=== PATIENT | male | born 2000 | race Caucasian/White ===

== ENCOUNTER 2023-07-01 10:25 | Inpatient (IN) ==
[2023-07-01] MEDS ORDERED: ONDANSETRON INJ 2 MG/ML 2 ML VIAL IV STA (10:48)
[2023-07-01] MEDS ORDERED: KETOROLAC 30 MG/ML VIAL IV ONE (10:59)
[2023-07-01] MEDS ORDERED: SODIUM CHLORIDE 0.9% 2,000 ML IV SCH (11:00)
--- NOTE | 2023-07-01 11:04 | Emergency Department Note ---
Impression & Plan Nausea & vomiting, Hypercalcemia, Hyperparathyroidism, Hypomagnesemia ED Provider Note HISTORY OF PRESENT ILLNESS: Patient is a 22-year-old male presenting with generalized abdominal pain, vomiting and diarrhea. Patient reports that he has been unable to tolerate anything by mouth for the last 48 hours. He reports that since he tries to eat or drink anything he vomits and has profuse diarrhea. Reports generalized abdominal pain. Reports an abdominal surgical history of an appendectomy. Denies any fevers in the last few days. Denies any recent travel. Denies any recent sick contact exposures. Currently complaining of generalized abdominal pain and nausea. Denies any dysuria or hematuria. Denies any chest pain or shortness of breath ROS: as above PHYSICAL EXAM: Constitutional: Patient appears in no acute distress. HENT: Head: Normocephalic and atraumatic. Eyes: EOMI, PERRL Mouth/Throat: Mucous membranes dry Neck: Trachea midline. Neck supple. Cardiovascular: RRR, No murmurs, rubs or gallops. Intact distal pulses. Pulmonary/Chest: No respiratory distress. Breath sounds clear and equal bilaterally. No wheezes or rales. Abdominal: Abdomen soft, no rebound or guarding. Generalized TTP Musculoskeletal: No edema, tenderness or deformity noted. Skin: Warm and dry. No rash, erythema, pallor or cyanosis Psychiatric: Appropriate mood and affect for situation. Neurological: Alert and keenly responsive. CN II-XII grossly intact, moving all extremities equally and fully. MDM: - Vitals signs stable. - History obtained via patient. Patient presents with generalized abdominal pain, vomiting and diarrhea. Patient reports he is unable to tolerate anything by mouth for the last 48 hours. He states that his pain is he tries to eat or drink anything, he immediately vomits. Denies any chest pain or shortness of breath. Denies any fevers. Has an abdominal surgical history of an appendectomy - Chronic conditions affecting care: none - Differential diagnoses include, but are not limited to: Viral syndrome; electrolyte abnormality; cholecystitis; colitis - Order placed for continuous cardiac monitoring. At this time, monitor showed rate of 84 bpm with normal sinus rhythm, per my interpretation. - External medical records reviewed. Patient was noted to be hypercalcemic in February 2023 with a calcium level of 12.5 - Laboratory workup interpreted by myself showed normal WBC; normal potassium; hypercalcemia (Ca 12.3); hypomagnesemia (Mg 1.5); hypophosphatemia (phos 1.7); normal lipase; IZA (Cr 1.35 - baseline around 0.9-1.0) - Patient given 2L NS and 4 mg IV zofran in ER. Given 30 mg IV toradol for pain. - Given patient's hypercalcemia in February 2023 and again today, ionized calcium and PTH was added to workup. Ionized calcium elevated at 1.42 and PTH be elevated at 193.6. - UA negative for infection - Cdiff and stool biofire negative - CT abdomen/pelvis with IV contrast negative for acute pathology. - Patient given 1g IV mag for electrolyte replacement. - Discussion was had with social work manager about patient's case and need for admission - Hospitalist consulted for admission - [facility] ASSESSMENT AND PLAN: Diagnosis: vomiting and diarrhea; hypercalcemia; hypomagnesemia; hyperparath yroidism; IZA Plan: admit Past Med/Surg History Medical History (Updated 07/01/23 @ 14:39 by Cathy Frost MD) No pertinent past medical history Surgical History (Updated 02/28/23 @ 15:59 by Soraya Herron RN) History of laparoscopic appendectomy (02/26/23) Laparoscopic Appendectomy(Not Applicable) - Jaime Bah MD, FACS Social History Smoking Status: Never smoker Preferred Language: Irish Visual Impairment: No Limitations Feels Safe at Home: Yes Allergies Allergies Allergy/AdvReac Type Severity Reaction Status Date / Time No Known Allergies Allergy Unverified 03/14/23 13:49 Results & Data (ED) Vital Signs Vital Signs - 24 hr 07/01/23 10:31 Temperature 36.4 C L Temperature Source Temporal Artery Scan Pulse Rate 84 Respiratory Rate 18 Respiratory Effort / Characteristics Non-Labored Respiratory Depth Normal Blood Pressure 137/85 Blood Pressure Mean 102 Blood Pressure Position Sitting Pulse Oximetry 100 Oxygen Delivery Method Room Air Sepsis Recent Fever Within 48 Hours No Sepsis New/Unexplained Change in Mental Status No Sepsis Action Taken by Nursing No Action Required Laboratory Data 07/01/23 11:29 07/01/23 11:29 Lab Results 1007/01/23 07/01/23 Range/Units 11:29 11:29 11:32 WBC 4.56 L (4.8-10.8) K/ul RBC 4.87 (4.70-6.10) M/uL Hgb 14.6 (14.0-18.0) g/dl Hct 42.7 (42.0-52.0) % MCV 87.7 (80.0-100.0) fL MCH 30.0 (25.0-34.0) pg MCHC 34.2 (32.0-36.0) g/dL RDW Std Deviation 40.2 (36.4-46.3) fL RDW Coeff of Gary 12.6 (11.5-14.5) % Plt Count 206 (130-400) K/uL MPV 10.0 (9.4-12.4) fL Immature Gran % (Auto) 0.2 % Neut % (Auto) 72.6 % Lymph % (Auto) 13.4 % [place] % (Auto) 13.4 % Eos % (Auto) 0.2 % Baso % (Auto) 0.2 % Neut # (Auto) 3.31 (1.40-6.50) K/uL Lymph # (Auto) 0.61 L (1.20-3.40) K/uL [place] # (Auto) 0.61 H (0.11-0.59) K/uL Eos # (Auto) 0.01 (0.00-0.50) K/uL Baso # (Auto) 0.01 (0.00-0.20) K/uL Immature Gran # (Auto) 0.01 (0.01-0.20) K/uL Sodium 138 (136-145) mmol/L Potassium 4.5 (3.5-5.1) mmol/L Chloride 109 H (98-107) mmol/L Carbon Dioxide 24 (21-32) mmol/L Anion Gap 5 (3-11) BUN 15 (6-23) mg/dl Creatinine 1.35 (0.6-1.4) mg/dl Est Cr Clr Drug Dosing 106.5 ml/min Est GFR ( Amer) 84.6 ml/min Est GFR (Non-Af Amer) 73.0 ml/min BUN/Creatinine Ratio 11.1 (10-20) Glucose 114 H (70-99(Fasting)) mg/dl Calcium 12.3 H* (8.6-10.3) mg/dl Ionized Calcium (1.12-1.32) mmol/L Phosphorus (2.5-4.9) mg/dl Magnesium (1.7-2.4) mg/dl Total Bilirubin 0.3 (0.2-1.0) mg/dl AST 22 (13-39) U/L ALT 20 (7-52) U/L Alkaline Phosphatase 142 H (34-104) U/L Total Protein 7.2 (6.0-8.3) gm/dl Albumin 4.5 (3.4-5.0) gm/dl Globulin 2.7 (2.5-4.0) gm/dl Albumin/Globulin Ratio 1.7 (0.9-2) Lipase 7 L (11-82) U/L PTH Intact (12.0-88.0) pg/ml Urine Color Yellow Urine Appearance Clear (Clear) Urine pH 5.5 (4.5-7.5) Ur Specific [place] 1.012 (1.000-1.030) Urine Protein Negative (Negative) Urine Glucose (UA) Negative (Negative) Urine Ketones 1+ H (Negative) Urine Blood Negative (Negative) Urine Nitrite Negative (Negative) Urine Bilirubin Negative (Negative) Urine Urobilinogen Negative (Negative) Ur Leukocyte Esterase Negative (Negative) Stl C. cayetanensis PCR (NotDetected) Stool Rotavirus A PCR (NotDetected) Stl Adenov F 40/41 PCR (NotDetected) Stool Astrovirus (PCR) (NotDetected) Stool Campylobacter PCR (NotDetected) Stl C. diff Tox B Gene (Neg) Stool Cryptosporidium PCR (NotDetected) Stl E.coli Shiga Tox PCR (NotDetected) Stl Enterotoxigenic E PCR (NotDetected) Stool EPEC (PCR) (NotDetected) Stool EAEC (PCR) (NotDetected) Stl E. histolytica PCR (NotDetected) Stool Giardia Lamblia PCR (NotDetected) Stool Salmonella PCR (NotDetected) Stool Sapovirus (PCR) (NotDetected) Stl P. shigelloides PCR (NotDetected) Stl Shigella/EIEC PCR (NotDetected) St Y.enterocolitica PCR (NotDetected) Stool Vibrio (PCR) (NotDetected) Stl Vibrio cholerae PCR (NotDetected) Stl Norovirus GI/GII PCR (NotDetected) 07/01/23 07/01/23 07/01/23 Range/Units 11:32 11:32 12:39 WBC (4.8-10.8) K/ul RBC (4.70-6.10) M/uL Hgb (14.0-18.0) g/dl Hct (42.0-52.0) % MCV (80.0-100.0) fL MCH (25.0-34.0) pg MCHC (32.0-36.0) g/dL RDW Std Deviation (36.4-46.3) fL RDW Coeff of Gary (11.5-14.5) % Plt Count (130-400) K/uL MPV (9.4-12.4) fL Immature Gran % (Auto) % Neut % (Auto) % Lymph % (Auto) % [place] % (Auto) % Eos % (Auto) % Baso % (Auto) % Neut # (Auto) (1.40-6.50) K/uL Lymph # (Auto) (1.20-3.40) K/uL [place] # (Auto) (0.11-0.59) K/uL Eos # (Auto) (0.00-0.50) K/uL Baso # (Auto) (0.00-0.20) K/uL Immature Gran # (Auto) (0.01-0.20) K/uL Sodium (136-145) mmol/L Potassium (3.5-5.1) mmol/L Chloride (98-107) mmol/L Carbon Dioxide (21-32) mmol/L Anion Gap (3-11) BUN (6-23) mg/dl Creatinine (0.6-1.4) mg/dl Est Cr Clr Drug Dosing ml/min Est GFR ( Amer) ml/min Est GFR (Non-Af Amer) ml/min BUN/Creatinine Ratio (10-20) Glucose (70-99(Fasting)) mg/dl Calcium (8.6-10.3) mg/dl Ionized Calcium (1.12-1.32) mmol/L Phosphorus 1.7 L (2.5-4.9) mg/dl Magnesium 1.5 L (1.7-2.4) mg/dl Total Bilirubin (0.2-1.0) mg/dl AST (13-39) U/L ALT (7-52) U/L Alkaline Phosphatase (34-104) U/L Total Protein (6.0-8.3) gm/dl Albumin (3.4-5.0) gm/dl Globulin (2.5-4.0) gm/dl Albumin/Globulin Ratio (0.9-2) Lipase (11-82) U/L PTH Intact (12.0-88.0) pg/ml Urine Color Urine Appearance (Clear) Urine pH (4.5-7.5) Ur Specific [place] (1.000-1.030) Urine Protein (Negative) Urine Glucose (UA) (Negative) Urine Ketones (Negative) Urine Blood (Negative) Urine Nitrite (Negative) Urine Bilirubin (Negative) Urine Urobilinogen (Negative) Ur Leukocyte Esterase (Negative) Stl C. cayetanensis PCR Not Detected (NotDetected) Stool Rotavirus A PCR Not Detected (NotDetected) Stl Adenov F 40/41 PCR Not Detected (NotDetected) Stool Astrovirus (PCR) Not Detected (NotDetected) Stool Campylobacter PCR Not Detected (NotDetected) Stl C. diff Tox B Gene Negative Cdiff Gene (Neg) Stool Cryptosporidium PCR Not Detected (NotDetected) Stl E.coli Shiga Tox PCR Not Detected (NotDetected) Stl Enterotoxigenic E PCR Not Detected (NotDetected) Stool EPEC (PCR) Not Detected (NotDetected) Stool EAEC (PCR) Not Detected (NotDetected) Stl E. histolytica PCR Not Detected (NotDetected) Stool Giardia Lamblia PCR Not Detected (NotDetected) Stool Salmonella PCR Not Detected (NotDetected) Stool Sapovirus (PCR) Not Detected (NotDetected) Stl P. shigelloides PCR Not Detected (NotDetected) Stl Shigella/EIEC PCR Not Detected (NotDetected) St Y.enterocolitica PCR Not Detected (NotDetected) Stool Vibrio (PCR) Not Detected (NotDetected) Stl Vibrio cholerae PCR Not Detected (NotDetected) Stl Norovirus GI/GII PCR Not Detected (NotDetected) 07/01/23 07/01/23 Range/Units 12:39 13:12 WBC (4.8-10.8) K/ul RBC (4.70-6.10) M/uL Hgb (14.0-18.0) g/dl Hct (42.0-52.0) % MCV (80.0-100.0) fL MCH (25.0-34.0) pg MCHC (32.0-36.0) g/dL RDW Std Deviation (36.4-46.3) fL RDW Coeff of Gary (11.5-14.5) % Plt Count (130-400) K/uL MPV (9.4-12.4) fL Immature Gran % (Auto) % Neut % (Auto) % Lymph % (Auto) % [place] % (Auto) % Eos % (Auto) % Baso % (Auto) % Neut # (Auto) (1.40-6.50) K/uL Lymph # (Auto) (1.20-3.40) K/uL [place] # (Auto) (0.11-0.59) K/uL Eos # (Auto) (0.00-0.50) K/uL Baso # (Auto) (0.00-0.20) K/uL Immature Gran # (Auto) (0.01-0.20) K/uL Sodium (136-145) mmol/L Potassium (3.5-5.1) mmol/L Chloride (98-107) mmol/L Carbon Dioxide (21-32) mmol/L Anion Gap (3-11) BUN (6-23) mg/dl Creatinine (0.6-1.4) mg/dl Est Cr Clr Drug Dosing ml/min Est GFR ( Amer) ml/min Est GFR (Non-Af Amer) ml/min BUN/Creatinine Ratio (10-20) Glucose (70-99(Fasting)) mg/dl Calcium (8.6-10.3) mg/dl Ionized Calcium 1.42 H (1.12-1.32) mmol/L Phosphorus (2.5-4.9) mg/dl Magnesium (1.7-2.4) mg/dl Total Bilirubin (0.2-1.0) mg/dl AST (13-39) U/L ALT (7-52) U/L Alkaline Phosphatase (34-104) U/L Total Protein (6.0-8.3) gm/dl Albumin (3.4-5.0) gm/dl Globulin (2.5-4.0) gm/dl Albumin/Globulin Ratio (0.9-2) Lipase (11-82) U/L PTH Intact 193.6 H (12.0-88.0) pg/ml Urine Color Urine Appearance (Clear) Urine pH (4.5-7.5) Ur Specific [place] (1.000-1.030) Urine Protein (Negative) Urine Glucose (UA) (Negative) Urine Ketones (Negative) Urine Blood (Negative) Urine Nitrite (Negative) Urine Bilirubin (Negative) Urine Urobilinogen (Negative) Ur Leukocyte Esterase (Negative) Stl C. cayetanensis PCR (NotDetected) Stool Rotavirus A PCR (NotDetected) Stl Adenov F 40/41 PCR (NotDetected) Stool Astrovirus (PCR) (NotDetected) Stool Campylobacter PCR (NotDetected) Stl C. diff Tox B Gene (Neg) Stool Cryptosporidium PCR (NotDetected) Stl E.coli Shiga Tox PCR (NotDetected) Stl Enterotoxigenic E PCR (NotDetected) Stool EPEC (PCR) (NotDetected) Stool EAEC (PCR) (NotDetected) Stl E. histolytica PCR (NotDetected) Stool Giardia Lamblia PCR (NotDetected) Stool Salmonella PCR (NotDetected) Stool Sapovirus (PCR) (NotDetected) Stl P. shigelloides PCR (NotDetected) Stl Shigella/EIEC PCR (NotDetected) St Y.enterocolitica PCR (NotDetected) Stool Vibrio (PCR) (NotDetected) Stl Vibrio cholerae PCR (NotDetected) Stl Norovirus GI/GII PCR (NotDetected) Administered Medications Discontinued Medications Sodium Chloride (Nss) 2,000 mls @ 999 mls/hr IV .Q2H1M MARIAM Stop: 07/01/23 13:00 Last Infusion: 07/01/23 14:03 Dose: 0 mls/hr Documented By: Admin: 07/01/23 12:00 Dose: 999 mls/hr Documented By: FLORY Ioversol (Optiray 320 100ml) 86 ml IV ONCE ONE Stop: 07/01/23 13:05 Last Admin: 07/01/23 13:04 Dose: 86 ml Documented By: TRAN Ketorolac Tromethamine (Ketorolac 30 Mg/Ml Vial) 30 mg IV NOW ONE Stop: 07/01/23 11:00 Last Admin: 07/01/23 11:59 Dose: 30 mg Documented By: FLORY Ondansetron HCl (Ondansetron Inj 2 Mg/Ml 2 Ml Vial) 4 mg IV NOW STA Stop: 07/01/23 10:49 Last Admin: 07/01/23 11:59 Dose: 4 mg Documented By: FLORY Imaging Data Radiologist's Impression: Abdomen/Pelvis CT 07/01/23 11:[address] WITH IV CONTRAST CT DOSE: 1434.97 mGy.cm HISTORY: Acute abdominal pain with nausea and vomiting abdominal pain; vomiting TECHNIQUE: Multiaxial CT images of the abdomen and pelvis were performed following the IV administration of 86 cc of Optiray, A dose lowering technique was utilized adhering to the principles of ALARA. COMPARISON STUDY: 02/26/2023 FINDINGS: The lung bases are clear. The liver, spleen, gallbladder, pancreas, and adrenal glands are within normal limits. Patchy heterogeneous enhancement of the kidneys. Mild bilateral urothelial thickening. Moderate bladder wall thickening with partial distention. Trace free pelvic fluid. Appendectomy. Mild colonic diverticulosis. No bowel wall thickening or obstruction. The pelvic organs are unremarkable. No suspicious lytic or blastic osseous lesions. IMPRESSION: 1. No bowel obstruction or bowel wall thickening. 2. Appendectomy. 3. Heterogeneous enhancement of the kidneys suggestive of pyelonephritis. Correlate with urinalysis. 4. No hydronephrosis. 5. Trace free pelvic fluid. ACT 112: Negative or not required by law. The above report was generated using voice recognition software. It may contain grammatical, syntax or spelling errors. Electronically signed by: Jayson Hansen M.D. 07/01/2023 1:27 PM Discharge Plan Visit Data Chief Complaint: GI Assessment Stated Complaint: VOMITING, DIARRHEA ED Provider: Cathy Frost Discharge Problem: Nausea & vomiting, Hypercalcemia, Hyperparathyroidism, Hypomagnesemia Forms Stand Alone Forms: [facility] Referrals Referrals: PCP,NO [Primary Care Provider] -
[2023-07-01 11:50] LABS: Basophils # (auto) 0.01 K/uL (0.00-0.20); Basophils % (auto) 0.2 %; Eosinophils # (auto) 0.01 K/uL (0.00-0.50); Eosinophils % (auto) 0.2 %; Hematocrit (blood only) 42.7 % (42.0-52.0); Hemoglobin 14.6 g/dl (14.0-18.0); Immature Granulocytes # (auto) 0.01 K/uL (0.01-0.20); Immature Granulocytes % (auto) 0.2 %; Lymphocytes # (auto) 0.61 K/uL (1.20-3.40); Lymphocytes % (auto) 13.4 %; Mean Corpuscular Hgb Conc 34.2 g/dL (32.0-36.0); Mean Corpuscular Volume 87.7 fL (80.0-100.0); Monocytes # (auto) 0.61 K/uL (0.11-0.59); Monocytes % (auto) 13.4 %; Neutrophils # (auto) 3.31 K/uL (1.40-6.50); Neutrophils % (auto) 72.6 %; Platelet Count 206 K/uL (130-400); RDW Coefficient of Variation 12.6 % (11.5-14.5); RDW Standard Deviation 40.2 fL (36.4-46.3); Red Blood Count 4.87 M/uL (4.70-6.10); White Blood Count 4.56 K/ul (4.8-10.8)
[2023-07-01 11:54] LABS: Appearance Urine Clear (Clear); Bilirubin Urine Negative (Negative); Blood Urine Negative (Negative); Color Urine Yellow; Glucose Urine UA Negative (Negative); Ketones Urine 1+ (Negative); Leukocyte Esterase Urine Negative (Negative); Nitrite Urine Negative (Negative); Protein Urine Negative (Negative); Specific Gravity Urine 1.012 (1.000-1.030); Urobilinogen Urine Negative (Negative); pH Urine 5.5 (4.5-7.5)
[2023-07-01 12:18] LABS: Albumin Globulin Ratio 1.7 (0.9-2); Albumin Level 4.5 gm/dl (3.4-5.0); BUN Creatinine Ratio 11.1 (10-20); Bilirubin,Total 0.3 mg/dl (0.2-1.0); Calcium 12.3 mg/dl (8.6-10.3); Creatinine Clr Calc Pharmacy 106.5 ml/min; Est GFR (African American) 84.6 ml/min; Globulin 2.7 gm/dl (2.5-4.0); Potassium 4.5 mmol/L (3.5-5.1); Total Protein 7.2 gm/dl (6.0-8.3)
[2023-07-01] MEDS ORDERED: OPTIRAY 320 100ml IV ONE (13:04)
[2023-07-01 13:12] LABS: Adenovirus F 40/41 PCR Not Detected (NotDetected); Astrovirus PCR Not Detected (NotDetected); Campylobacter PCR Not Detected (NotDetected); Cryptosporidium PCR Not Detected (NotDetected); Cyclospora cayetanensis PCR Not Detected (NotDetected); Entamoeba histolytica PCR Not Detected (NotDetected); Enteroaggregative E.coli(EAEC) Not Detected (NotDetected); Enteropathogenic E.coli (EPEC) Not Detected (NotDetected); Enterotoxigenic E.coli (ETEC) Not Detected (NotDetected); Giardia lamblia PCR Not Detected (NotDetected); Norovirus GI/GII PCR Not Detected (NotDetected); Plesiomonas shigelloides PCR Not Detected (NotDetected); Rotavirus A PCR Not Detected (NotDetected); Salmonella PCR Not Detected (NotDetected); Sapovirus PCR Not Detected (NotDetected); Shiga-like Toxin E.coli (STEC) Not Detected (NotDetected); Shigella/Enteroinvasive E.coli Not Detected (NotDetected); Vibrio cholerae PCR Not Detected (NotDetected); Vibrio species PCR Not Detected (NotDetected); Yersinia enterocolitica PCR Not Detected (NotDetected)
[2023-07-01 13:25] LABS: Magnesium 1.5 mg/dl (1.7-2.4); Phosphorus 1.7 mg/dl (2.5-4.9)
--- NOTE | 2023-07-01 13:29 | CT Scan Report ---
ABDOMEN AND PELVIS CT WITH IV CONTRAST CT DOSE: 1434.97 mGy.cm HISTORY: Acute abdominal pain with nausea and vomiting abdominal pain; vomiting TECHNIQUE: Multiaxial CT images of the abdomen and pelvis were performed following the IV administrat ion of 86 cc of Optiray, A dose lowering technique was utilized adhering to the principles of ALARA. COMPARISON STUDY: 02/26/2023 FINDINGS: The lung bases are clear. The liver, spleen, gallbladder, pancreas, and adrenal glands are within normal limits. Patchy heterogeneous enhancement of the kidneys. Mild bilateral urothelial thic kening. Moderate bladder wall thickening with partial distention. Trace free pelvic fluid. Appendecto my. Mild colonic diverticulosis. No bowel wall thickening or obstruction. The pelvic organs are unrem arkable. No suspicious lytic or blastic osseous lesions. IMPRESSION: 1. No bowel obstruction or bowel wall thickening. 2. Appendectomy. 3. Heterogeneous enhancement of the kidneys suggestive of pyelonephritis. Correlate with urinalysis. 4. No hydronephrosis. 5. Trace free pelvic fluid. ACT 112: Negative or not required by law. The above report was generated using voice recognition software. It may contain grammatical, syntax o r spelling errors. Electronically signed by: Jayson Hansen M.D. 07/01/2023 1:27 PM
[2023-07-01] MEDS ORDERED: MAGNESIUM SULFATE / D5W 1 GM/100 ML BAG IV STA (14:32)
--- NOTE | 2023-07-01 15:25 | History & Physical Report ---
Date of Service July 01, 2023 Assessment & Plan (1) Abdominal pain: (2) Nausea & vomiting: (3) Diarrhea: Plan: 22-year-old male with no significant past medical history presenting with generalized abdominal pain, nausea and vomiting, with diarrhea x2 days. Abdominal pain, nausea vomiting, diarrhea Secondary to hypercalcemia? Calcium elevated 12.3, PTH 190 Possible primary hyperparathyroidism Discussed with media librarian Dr. Andrade Recommend NSS at 100 cc/h, calcitonin every 12 hours, Pamidronate Repeat calcium level tomorrow Check vitamin D level, JOEL level, renal ultrasound Check 24-hour urine calcium and urine creatinine starting tomorrow at [address] neck as well once calcium level is below 10 Rule out urinary tract infection, pyelonephritis Urinalysis unrevealing But patient has right CVA tenderness CT abdomen pelvis showing possible pyelonephritis Check urine culture ceftriaxone IV every 24 hours Possible viral gastroenteritis Stool PCR negative Continue supportive care including IV fluids, bowel rest Hypomagnesemia, hypophosphatemia Secondary to poor oral intake, diarrhea Replace with IV sodium phosphorus, IV magnesium Repeat phosphorus and magnesium tonight DVT prophylaxis-SCDs CODE STATUS Full code Disposition Return to home when medically stable History of Present Illness Chief Complaint: Generalized abdominal pain, nausea and vomiting x2-day Primary Care Provider: NO PCP 22-year-old male with no past medical history presenting with generalized abdominal pain and nausea, vomiting x2 days Patient reports that since , he has been having tenderness abdominal pain associated with nausea, vomiting, and diarrhea times at least 10 times per day. No hematemesis or hematochezia. No fever or chills He reports having some right lower back discomfort but denies problems with urination including dysuria, hematuria, etc. He presented to the ER today due to persistence of his symptoms. At the ER, patient received hemodynamically stable, afebrile. Calcium level 12.3, PTH 190. Urinalysis unrevealing for CT scan abdomen and pelvis showing possible pyelonephritis On exam, the patient is seen resting in bed, reports nausea has returned since Zofran has been given a while ago. Abdominal pain seems to be improving No any other symptoms Allergies Allergy/AdvReac Type Severity Reaction Status Date / Time No Known Allergies Allergy Unverified 03/14/23 13:49 Home Medications Medication Instructions Recorded Confirmed Type No Known Home Medications 07/01/23 07/01/23 History Past Med/Surg History Medical History (Updated 07/01/23 @ 15:18 by Trever Marinelli MD) No pertinent past medical history Surgical History (Updated 02/28/23 @ 15:59 by Soraya Herron RN) History of laparoscopic appendectomy (02/26/23) Laparoscopic Appendectomy(Not Applicable) - Jaime Bah MD, FACS Social History Smoking Status: Never smoker Preferred Language: Venezuelan Visual Impairment: No Limitations Feels Safe at Home: Yes Review of Systems Review of Systems: all noted and negative except for above Physical Exam Physical Exam: General- oriented x 3, not in distress, speaks in sentences with no effort or accessory muscle use Head- atraumatic Eyes- PERRL, EOMI, anicteric ENT- oropharynx clear Positive dry oral mucosa next Neck- supple, no JVD, no adenopathy, no thyromegaly; carotids +2/2, no bruits appreciated Lungs- clear to auscultation bilaterally, no rales/wheezes Heart- normal rate, regular rhythm; no murmur, no gallop, no rub appreciated Abdomen- normal bowel sounds, nondistended, soft, Positive moderately tender in all quadrants,, no masses or hepatosplenomegaly Positive mild right CVA tenderness next Extremities- no pretibial edema, no calf tenderness; peripheral pulses intact Neuro- alert, oriented x 3; CN 2-12 grossly intact; motor 5/5 bilaterally;sensation 100% on all extremities; no other gross focal neurologic deficits Skin- warm & dry Results & Data Results & Data Vital Signs (Past 12 Hours) Vital Signs Temp Pulse Resp BP Pulse Ox O2 Del Method 07/01/23 10:31 36.4 C L 84 18 137/85 100 Room Air all noted and reviewed including below Code Status & VTE Plan VTE Prophylaxis Plan VTE Prophylaxis will be ordered: Yes
[2023-07-01] MEDS ORDERED: SODIUM CHLORIDE 0.9% IV ONE (16:00)
[2023-07-01] MEDS ORDERED: PAMIDRONATE DISODIUM IV ONE (16:00)
[2023-07-01] MEDS ORDERED: PROMETHAZINE HCL 12.5 MG in SODIUM CHLORIDE 0.9% 50 ML IV STA (16:18)
[2023-07-01] MEDS ORDERED: SODIUM PHOSPHATE 3 MMOL/1 ML INFUSION IV STA (16:18)
[2023-07-01] MEDS ORDERED: PROMETHAZINE HCL 12.5 MG in SODIUM CHLORIDE 0.9% 50 ML IV PRN (16:18)
[2023-07-01] MEDS ORDERED: SODIUM PHOSPHATE 21 MMOL in DEXTROSE 5% 500 ML IV ONE (17:00)
[2023-07-01] MEDS: SODIUM CHLORIDE 0.9% 1,000 ML IV SCH (17:34)
[2023-07-01] MEDS: CALCITONIN SALMON 400 UNITS/2 ML SQ SCH (17:39)
[2023-07-01] MEDS: ACETAMINOPHEN 1,000 MG/100 ML VIAL IV SCH (17:49)
[2023-07-01] MEDS: cefTRIAXone SODIUM 2,000 MG in DEXTROSE 5 % MINI-B 50 ML IV SCH (18:50)
[2023-07-01] MEDS: ONDANSETRON INJ 2 MG/ML 2 ML VIAL IV PRN (20:12)
[2023-07-01] MEDS ORDERED: PROCHLORPERAZINE 5 MG in SYRINGE 4 ML IV ONE (22:10)
[2023-07-01 23:48] LABS: Magnesium 1.7 mg/dl (1.7-2.4); Phosphorus 2.4 mg/dl (2.5-4.9)
[2023-07-02] MEDS: ONDANSETRON INJ 2 MG/ML 2 ML VIAL IV PRN ×2 (03:13→17:15)
[2023-07-02] MEDS: ACETAMINOPHEN 1,000 MG/100 ML VIAL IV SCH ×2 (03:39→16:42)
[2023-07-02] MEDS: SODIUM CHLORIDE 0.9% 1,000 ML IV SCH ×2 (03:48→14:20)
[2023-07-02] MEDS: CALCITONIN SALMON 400 UNITS/2 ML SQ SCH (05:22)
--- NOTE | 2023-07-02 07:08 | Electrocardiogram Report ---
Test Reason : Blood Pressure : / mmHG Vent. Rate : 069 BPM Atrial Rate : 069 BPM P-R Int : 172 ms QRS Dur : 098 ms QT Int : 362 ms P-R-T Axes : 034 039 036 degrees QTc Int : 387 ms Normal sinus rhythm Nonspecific T wave abnormality Poor R wave progression, consider anterior ME vs. lead placement vs. LVH Abnormal ECG No previous ECGs available Confirmed by Greg Fernández ([id number]) on 07/02/2023 7:08:40 AM Referred By: REFERRED SELF Confirmed By:Wolfgang Fernández
[2023-07-02 07:12] LABS: Albumin Globulin Ratio 1.8 (0.9-2); Albumin Level 3.8 gm/dl (3.4-5.0); BUN Creatinine Ratio 8.8 (10-20); Bilirubin,Total 0.2 mg/dl (0.2-1.0); Calcium 8.6 mg/dl (8.6-10.3); Creatinine Clr Calc Pharmacy 142.2 ml/min; Est GFR (African American) 118.7 ml/min; Est GFR (Non-African American) 102.4 ml/min; Globulin 2.1 gm/dl (2.5-4.0); Magnesium 1.8 mg/dl (1.7-2.4); Phosphorus 2.2 mg/dl (2.5-4.9); Total Protein 5.9 gm/dl (6.0-8.3)
[2023-07-02 07:44] LABS: Basophils # (auto) 0.02 K/uL (0.00-0.20); Basophils % (auto) 0.4 %; Eosinophils # (auto) 0.02 K/uL (0.00-0.50); Eosinophils % (auto) 0.4 %; Hemoglobin 12.9 g/dl (14.0-18.0); Immature Granulocytes # (auto) 0.02 K/uL (0.01-0.20); Immature Granulocytes % (auto) 0.4 %; Lymphocytes # (auto) 0.83 K/uL (1.20-3.40); Lymphocytes % (auto) 14.6 %; Mean Corpuscular Hemoglobin 30.1 pg (25.0-34.0); Mean Corpuscular Hgb Conc 34.9 g/dL (32.0-36.0); Mean Corpuscular Volume 86.4 fL (80.0-100.0); Mean Platelet Volume 10.1 fL (9.4-12.4); Monocytes # (auto) 0.82 K/uL (0.11-0.59); Monocytes % (auto) 14.4 %; Neutrophils # (auto) 3.97 K/uL (1.40-6.50); Neutrophils % (auto) 69.8 %; Platelet Count 178 K/uL (130-400); RDW Coefficient of Variation 12.7 % (11.5-14.5); RDW Standard Deviation 39.9 fL (36.4-46.3); Red Blood Count 4.28 M/uL (4.70-6.10); White Blood Count 5.68 K/ul (4.8-10.8)
[2023-07-02] MEDS ORDERED: POTASSIUM PHOS 3 MMOL/1 ML INFUSION IV STA (07:54)
[2023-07-02] MEDS ORDERED: POTASSIUM PHOSPHATE 21 MMOL in SODIUM CHLORIDE 0.9% 500 ML IV ONE (08:15)
--- NOTE | 2023-07-02 10:29 | Hospitalist Progress Note ---
Date of Service July 02, 2023 Assessment & Plan (1) Abdominal pain: (2) Nausea & vomiting: (3) Diarrhea: Plan: 22-year-old male with no significant past medical history presenting with generalized abdominal pain, nausea and vomiting, with diarrhea x2 days. Hypercalcemia Abdominal pain, nausea vomiting, diarrhea On admission, calcium elevated to 12.3, PTH 190 CT abd/pelvis with no acute GI pathology, did note possible pyelonephritis (see below) Possible primary hyperparathyroidism Admitting provider discussed with supervisor varnish Dr. Andrade Recommended NSS at 100 cc/h, calcitonin every 12 hours, Pamidronate. Calcium level wnl with AM labs, and calcitonin and pamidronate have since been discontinued. Vitamin D level, JOEL level, renal ultrasound all pending 24-hour urine calcium and urine creatinine ordered to start AM 07/02- results pending With Ca level now normal, will start further neck evaluation with US neck, consider CT if nonrevealing Nephrology consult-Calcium level now normal, appreciate recs for discharge UTI/Pyelonephritis Patient with right CVA tenderness CT abdomen pelvis showing possible pyelonephritis UA nonrevealing, Urine culture pending Ceftriaxone IV every 24 hours Possible viral gastroenteritis Stool PCR negative Continue supportive care including IV fluids, bowel rest Hypomagnesemia, hypophosphatemia Secondary to poor oral intake, diarrhea Replete as needed Continue to monitor Diet: currently NPO, per pt not able to tolerate food yet DVT prophylaxis-SCDs, ambulation as tolerated CODE STATUS: Full code Admission and Anticipated Discharge Date Admission Date: July 01, 2023 Subjective Pt seen in the AM. States that he is still having dry heaves, but the nausea is improving. Still does not want to eat yet. Does note that he smokes marijuana twice a month, has done this for years. Denies any sick contacts, also having diarrhea. Review of Systems Review of Systems: All systems reviewed & are unremarkable except as noted in Subjective Physical Exam Physical Exam: General: Alert, oriented. No acute distress Skin: No noted rashes or bruises Psych: Appropriate mood and affect Neuro: No gross deficits HEENT: NC/AT CV: RRR Resp: no increased effort of breathing. Abdomen: Soft, diffusely tender Extremities: No edema in lower extremities bilaterally. Results & Data Results & Data Vital Signs (Past 12 Hours) Vital Signs Temp Pulse Pulse Resp BP Pulse Ox O2 Del Method 07/02/23 07:18 83 07/02/23 07:21 36.2 C L 75 20 130/71 99 Room Air 07/02/23 03:28 36.4 C L 69 18 128/77 100 Room Air 07/02/23 00:17 81 07/01/23 22:45 36.8 C 63 18 131/71 99 Room Air
--- NOTE | 2023-07-02 11:28 | Nephrology Consultation ---
Date of Consultation July 02, 2023 Assessment & Plan (1) Hypercalcemia: Hypercalcemia Abdominal pain, nausea vomiting, diarrhea On admission, calcium elevated to 12.3, PTH 190, normal albumin and normal renal functions. Possible primary hyperparathyroidism-- USS Neck is suggestive of 1.4 cm hypoechoic nodule along the posterior margin of the right thyroid. Differential considerations would include an exophytic thyroid nodule, a parathyroid nodule versus abnormal lymph node. - armstrong has received Iv fluids and calcitonin( 2 doses) - Calcium level are wnl now, and calcitonin and pamidronate have since been discontinued. -Vitamin D level, JOEL level, renal ultrasound all pending -24-hour urine calcium and urine creatinine ordered to start AM 07/02- results pending -Will need CT neck later -- can be done as OP. His calcium levels returned to normal pretty soon, I would repeat the ionized calcium with phosphorus and PTH again tmrw to confirm the initial levels. - He will need a endocrinology referral if PTH is high. Care co-ordinated with Dr Escoto. (2) Electrolyte abnormality: Hypomagnesemia, hypophosphatemia Secondary to poor oral intake, diarrhea Replaced with IV sodium phosphorus, IV magnesium - will need oral replacement , atleast for few days on discharge( neutra - phos 1 packet BID,Magnesium Oxide 1 tab BID)for 1 week, - Will need Nephrology f/u in 1- 2 weeks on dischargel (3) Pyelonephritis: -on ceftrioxone - f/w urine culture (4) Diarrhea: - likley Viral (5) Hyperparathyroidism: History of Present Illness Reason for Consultation: Hypercalcemia, IZA Attending Physician: Shannan Escoto MD History of Present Illness 22-year-old male with no past medical history who presented to the ER with ge neralized abdominal pain and nausea, vomiting x2 days, he also c/o R lower back pain,but no dysuric symptoms He reports having some right lower back discomfort but denies problems with urination including dysuria, hematuria, etc. ER labs were significant for Calcium level 12.3, PTH [address] scan abdomen and pelvis showing possible pyelonephritis, Renal functions were normal He denies using any Vitamin D or calcium supplements. He recalls a single incidence of passing renal stone @ 2 years back, no more episodes after that. 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 On exam today, the patient is seen resting in bed with improved N/V. Abdominal pain has improved as well. Allergies Allergy/AdvReac Type Severity Reaction Status Date / Time No Known Allergies Allergy Unverified 03/14/23 13:49 Home Medications Medication Instructions Recorded Confirmed Type No Known Home Medications 07/01/23 07/01/23 History Patient History Medical History (Updated 07/02/23 @ 11:36 by Farzaneh Andrade MD) No pertinent past medical history Surgical History (Updated 02/28/23 @ 15:59 by Soraya Herron RN) History of laparoscopic appendectomy (02/26/23) Laparoscopic Appendectomy(Not Applicable) - Jaime Bah MD, FACS Social History Smoking Status: Former smoker Tobacco Type: Cigarettes Second Hand Exposure: No; Do You Dip or Chew Tobacco: No; Tobacco Cessation Education Requested by Patient: No Hx Alcohol Use: No Hx Substance Use: Yes Last Used Substance: Days (ago) Last Used Substance Other:: monthly Preferred Language: Kiswahili Communication Ability: Effective Visual Impairment: No Limitations Saturator Tender Required: No Beliefs That Will Affect Care: None Current Living Situation: Family Other Information That Helps Us Care for You: No Feels Safe at Home: Yes Safety Concerns: Feels Safe At This Time Assistive Devices: None Review of Systems Review of Systems: All systems reviewed & are unremarkable except as noted in HPI & below Results & Data Vital Signs (Past 12 Hours) Vital Signs Temp Pulse Pulse Resp BP Pulse Ox O2 Del Method 07/02/23 07:18 83 07/02/23 07:21 36.2 C L 75 20 130/71 99 Room Air 07/02/23 03:28 36.4 C L 69 18 128/77 100 Room Air 07/02/23 00:17 81 Laboratory Results 07/02/23 07:11 07/02/23 05:59
--- NOTE | 2023-07-02 12:34 | Ultrasound Report ---
US soft tissue head and neck HISTORY: 22 years-old Male hypercal, parathyroid eval patient presents with hypercalcemia COMPARISON: CT maxillofacial 02/10/2018 TECHNIQUE: Multiple real-time sonographic images of the thyroid obtained assessing a scale appearance and color flow FINDINGS: Right lobe of the thyroid measures 4.9 x 1.9 x 1.5 cm lobe measures 3.8 x 1.5 x 1.2 cm. Thyroid isthm us measures 0.4 cm. The parenchyma is predominantly homogeneous. Normal vascularity. Hypoechoic ovoid nodule along the posterior margin of the right thyroid, 1.4 x 1.1 x 1.3 cm. No associated color flow . IMPRESSION: 1.4 cm hypoechoic nodule along the posterior margin of the right thyroid. Differential co nsiderations would include an exophytic thyroid nodule, a parathyroid nodule versus abnormal lymph no de. A technetium 99 sestamibi may be considered for workup. ACT 112: Negative or not required by law. The above report was generated using voice recognition software. It may contain grammatical, syntax o r spelling errors. Electronically signed by: Jayson Hansen M.D. 07/02/2023 12:32 PM
[2023-07-02] MEDS: cefTRIAXone SODIUM 2,000 MG in DEXTROSE 5 % MINI-B 50 ML IV SCH (17:06)
[2023-07-03] MEDS: SODIUM CHLORIDE 0.9% 1,000 ML IV SCH ×2 (00:42→10:19)
[2023-07-03] MEDS: ONDANSETRON INJ 2 MG/ML 2 ML VIAL IV PRN (02:57)
[2023-07-03] MEDS: ACETAMINOPHEN 1,000 MG/100 ML VIAL IV SCH ×2 (03:01→18:02)
[2023-07-03 06:33] LABS: Basophils # (auto) 0.02 K/uL (0.00-0.20); Basophils % (auto) 0.3 %; Eosinophils # (auto) 0.03 K/uL (0.00-0.50); Eosinophils % (auto) 0.4 %; Hematocrit (blood only) 36.6 % (42.0-52.0); Hemoglobin 12.8 g/dl (14.0-18.0); Immature Granulocytes # (auto) 0.02 K/uL (0.01-0.20); Immature Granulocytes % (auto) 0.3 %; Lymphocytes # (auto) 1.05 K/uL (1.20-3.40); Lymphocytes % (auto) 15.4 %; Mean Corpuscular Hemoglobin 30.2 pg (25.0-34.0); Mean Corpuscular Volume 86.3 fL (80.0-100.0); Mean Platelet Volume 10.6 fL (9.4-12.4); Monocytes % (auto) 10.3 %; Neutrophils # (auto) 4.99 K/uL (1.40-6.50); Neutrophils % (auto) 73.3 %; Platelet Count 189 K/uL (130-400); RDW Coefficient of Variation 12.9 % (11.5-14.5); RDW Standard Deviation 40.5 fL (36.4-46.3); Red Blood Count 4.24 M/uL (4.70-6.10); White Blood Count 6.81 K/ul (4.8-10.8)
[2023-07-03 07:03] LABS: Albumin Globulin Ratio 1.7 (0.9-2); Albumin Level 3.8 gm/dl (3.4-5.0); Bilirubin,Total 0.3 mg/dl (0.2-1.0); Calcium 9.3 mg/dl (8.6-10.3); Creatinine Clr Calc Pharmacy 164.7 ml/min; Est GFR (African American) 139.3 ml/min; Est GFR (Non-African American) 120.2 ml/min; Globulin 2.2 gm/dl (2.5-4.0); Magnesium 1.8 mg/dl (1.7-2.4); Phosphorus 2.2 mg/dl (2.5-4.9); Potassium 3.8 mmol/L (3.5-5.1)
[2023-07-03] MEDS ORDERED: POTASSIUM PHOS 3 MMOL/1 ML INFUSION IV STA (10:00)
--- NOTE | 2023-07-03 10:02 | Nephrology Progress Note ---
Date of Service July 03, 2023 Assessment & Plan Admission and Anticipated Discharge Date Admission Date: July 01, 2023 Subjective Assessment & Plan (1) Hypercalcemia: Hypercalcemia Abdominal pain, nausea vomiting, diarrhea On admission, calcium elevated to 12.3, PTH 190, normal albumin and normal renal functions. Possible primary hyperparathyroidism-- USS Neck is suggestive of1.4 cm hypoechoic nodule along the posterior margin of the right thyroid. Differential considerations would include an exophytic thyroid nodule, a parathyroid nodule versus abnormal lymph node. - he has received Iv fluids and calcitonin( 2 doses) Ca now normal. Vit D low. 24 hr urine tests pending. His calcium levels returned to normal pretty soon, I would repeat the ionized calcium with phosphorus and PTH again tmrw to confirm the initial levels. Will do sestamibi parathyroid scan while inpt---most likely a case of Primary hyperparathyroidism. But will need nephrology referral after discharge for further management. Phos is expected to be low in Primary Hyperparathyroidism. Give another 15 mmol today. Discharge on neutraphos k 1 bid. Will not aim to correct it to normal. Continue NS while inpt. make sure to drink at least 100 oz of water per day after discharge (3) Pyelonephritis: -on ceftrioxone. NGTD with urine culture S--no new issues. Says no diarrhea now. eating fine Physical Exam Physical Exam: General- oriented x 3, not in distress Head- atraumatic Eyes- PERRL, EOMI, anicteric ENT- oropharynx clear Positive dry oral mucosa next Neck- supple, no JVD, no adenopathy, no thyromegaly Lungs- clear to auscultation bilaterally, no rales/wheezes Heart- normal rate, regular rhythm; no murmur, no gallop, no rub appreciated Abdomen- normal bowel sounds, nondistended, soft, Positive moderately tender in all quadrants,, no masses or hepatosplenomegaly Positive mild right CVA tenderness next No edema calf tenderness; peripheral pulses intact Neuro- alert, oriented x 3; CN 2-12 grossly intact; motor 5/5 bilaterally;sensation 100% on all extremities; no other gross focal neurologic deficits Skin- warm & dry Results & Data Vital Signs (Past 12 Hours) Vital Signs Temp Pulse Resp BP Pulse Ox O2 Del Method 07/03/23 07:26 36.4 C L 68 20 133/79 98 Room Air 10/30/23 02:58 36.6 C 65 20 125/84 99 Room Air 07/02/23 22:48 37.2 C 91 H 18 149/78 H 98 Room Air
[2023-07-03] MEDS ORDERED: POTASSIUM PHOSPHATE 15 MMOL in SODIUM CHLORIDE 0.9% 250 ML IV ONE (10:15)
[2023-07-03 10:45] LABS: Urine Creatinine 46.9 mg/dl
[2023-07-03] MEDS ORDERED: POT PHOSPHATE MONOBASIC W/ SOD TAB PO SCH (10:45)
[2023-07-03 11:05] LABS: Creatinine 24 Hour Urine 2.3 gm/24 HR (0.6-2.5)
--- NOTE | 2023-07-03 14:00 | Hospitalist Progress Note ---
Date of Service July 03, 2023 Assessment & Plan (1) Abdominal pain: (2) Nausea & vomiting: (3) Diarrhea: Plan: 22-year-old male with no significant past medical history presenting with generalized abdominal pain, nausea and vomiting, with diarrhea x2 days. Hypercalcemia Abdominal pain, nausea vomiting, diarrhea On admission, calcium elevated to 12.3, PTH 190 CT abd/pelvis with no acute GI pathology, did note possible pyelonephritis (see below) Possible primary hyperparathyroidism Admitting provider discussed with school social worker Dr. Andrade Recommended NSS at 100 cc/h, calcitonin every 12 hours, Pamidronate. Calcium level wnl with AM labs, and calcitonin and pamidronate have since been discontinued. Vitamin D level, JOEL level, renal ultrasound all pending 24-hour urine calcium and urine creatinine ordered to start AM 07/02- results pending With Ca level now normal, will start further neck evaluation with US neck, consider CT if nonrevealing Nephrology consult-Calcium level now normal, appreciate recs for discharge Appreciate nephrology input and recommendation Calcium level has been normalized Parathyroid scan is pending and the patient remains free of any symptoms Likely discharge this afternoon UTI/Pyelonephritis Patient with right CVA tenderness CT abdomen pelvis showing possible pyelonephritis UA nonrevealing, Urine culture pending Ceftriaxone IV every 24 hours Urine culture has been negative He remains afebrile without any urinary symptoms and white count has been normal throughout We will discontinue antibiotic on discharge Possible viral gastroenteritis Stool PCR negative Continue supportive care including IV fluids, bowel rest Clinically much better and will advance diet as tolerated Hypomagnesemia, hypophosphatemia Secondary to poor oral intake, diarrhea Replete as needed Continue to monitor Diet: currently NPO, per pt not able to tolerate food yet DVT prophylaxis-SCDs, ambulation as tolerated CODE STATUS: Full code Likely discharge this afternoon Admission and Anticipated Discharge Date Admission Date: July 01, 2023 Subjective 07/03/2023 The patient was seen and examined in telemetry unit He has been feeling much better and denies any significant abdominal pain, nausea and or vomiting His diet will be advanced as tolerated He wants to be discharged this afternoon and we are waiting for parathyroid scan before he can be discharged Review of Systems Review of Systems: All systems reviewed and are unremarkable except as noted below Physical Exam Physical Exam: Lying in bed comfortably Constitutional: well developed, well nourished and + obese; not ill appearing Eyes: PERRL, conjunctivae normal, anicteric sclerae ENMT: external ear and nose normal, oropharynx normal Neck: trachea midline, no thyromegaly Respiratory: no respiratory distress Auscultation: lungs clear to auscultation bilaterally Cardiovascular: Rate/Rhythm: regular rate, regular rhythm and + bradycardic Heart Sounds: normal S1 and normal S2; no murmur Extremities: no edema Gastrointestinal (Abdomen): Inspection/Auscultation: normal bowel sounds; abdomen not distended Percussion/Palpation: abdomen soft; abdomen nontender Musculoskeletal: No acute arthritis involving any joint Neurologic: normal touch/pain/proprioception and moves all extremities; no focal motor deficits Lymphatic: no cervical or axillary lymphadenopathy Results & Data Results & Data Vital Signs (Past 12 Hours) Vital Signs Temp Pulse Resp BP Pulse Ox O2 Del Method 07/03/23 11:35 36.9 C 58 L 19 153/71 H 98 Room Air 07/03/23 07:26 36.4 C L 68 20 133/79 98 Room Air 07/03/23 02:58 36.6 C 65 20 125/84 99 Room Air Laboratory Results Short CBC 07/03/23 Range/Units 05:45 WBC 6.81 (4.8-10.8) K/ul Hgb 12.8 L (14.0-18.0) g/dl Hct 36.6 L (42.0-52.0) % Plt Count 189 (130-400) K/uL BMP 07/03/23 05:45 Sodium 138 Potassium 3.8 Chloride 111 H Carbon Dioxide 21 BUN 7 Creatinine 0.88 Glucose 95 Calcium 9.3 Liver Function 07/03/23 Range/Units 05:45 Total Bilirubin 0.3 (0.2-1.0) mg/dl AST 15 (13-39) U/L ALT 14 (7-52) U/L Alkaline Phosphatase 105 H (34-104) U/L Albumin 3.8 (3.4-5.0) gm/dl Medications Administered Current Inpatient Medications Sodium Chloride (Nss) 1,000 mls @ 100 mls/hr IV .Q10H [facility] Stop: 07/31/23 16:17 Last Admin: 07/03/23 10:19 Dose: 100 mls/hr Acetaminophen (Ofirmev) 1,000 mg in 100 mls @ 400 mls/hr IV Q12H [facility] Stop: 07/04/23 16:29 Last Infusion: 07/03/23 03:53 Dose: Infused Ceftriaxone Sodium 2,000 mg/ (Dextrose) 50 mls @ 100 mls/hr IV Q24H [facility]; Protocol Stop: 07/11/23 16:59 Last Infusion: 07/02/23 17:36 Dose: Infused Ondansetron HCl (Ondansetron Inj 2 Mg/Ml 2 Ml Vial) 4 mg IV Q6H PRN PRN Reason: Nausea And Vomiting Stop: 07/31/23 19:50 Last Admin: 07/03/23 02:57 Dose: 4 mg Potassium Phosphate (Pot Phosphate Monobasic W/ Sod Tab) 1 tab PO BID [facility] Stop: 08/02/23 10:44 Last Admin: 07/03/23 12:12 Dose: 1 tab
[2023-07-03] MEDS: cefTRIAXone SODIUM 2,000 MG in DEXTROSE 5 % MINI-B 50 ML IV SCH (18:02)
--- NOTE | 2023-07-03 19:11 | Nuclear Medicine Report ---
NM parathyroid CLINICAL HISTORY: Hypercalcemia/High PTH for parathyroid adenoma TECHNIQUE: Following the intravenous injection of 20.50 mCi of Tc-99m sestamibi, multiple images of the neck were obtained. Comparison: Comparison is made to ultrasound soft tissue neck 07/02/2023 FINDINGS: Focal uptake is seen in the right thoracic inlet on both early and delayed images. Normal u ptake of sestamibi by the thyroid is seen on early images only. IMPRESSION: Prominent uptake of sestamibi radiotracer in the right thoracic inlet is seen corresponding to parath yroid hyperplasia or adenoma. ACT 112: Negative or not required by law. Electronically signed by: Chicho Ruelas M.D. 07/03/2023 7:09 PM
--- NOTE | 2023-07-04 07:43 | Discharge Summary ---
Date of Service July 03, 2023 Admission HPI Per Admitting Provider 22-year-old male with no past medical history presenting with generalized abdominal pain and nausea, vomiting x2 days Patient reports that since , he has been having tenderness abdominal pain associated with nausea, vomiting, and diarrhea times at least 10 times per day. No hematemesis or hematochezia. No fever or chills He reports having some right lower back discomfort but denies problems with urination including dysuria, hematuria, etc. He presented to the ER today due to persistence of his symptoms. At the ER, patient received hemodynamically stable, afebrile. Calcium level 12.3, PTH 190. Urinalysis unrevealing for CT scan abdomen and pelvis showing possible pyelonephritis On exam, the patient is seen resting in bed, reports nausea has returned since Zofran has been given a while ago. Abdominal pain seems to be improving No any other symptoms Admission Exam Per Admitting Provider Physical Exam: General- oriented x 3, not in distress, speaks in sentences with no effort or accessory muscle use Head- atraumatic Eyes- PERRL, EOMI, anicteric ENT- oropharynx clear Positive dry oral mucosa next Neck- supple, no JVD, no adenopathy, no thyromegaly; carotids +2/2, no bruits appreciated Lungs- clear to auscultation bilaterally, no rales/wheezes Heart- normal rate, regular rhythm; no murmur, no gallop, no rub appreciated Abdomen- normal bowel sounds, nondistended, soft, Positive moderately tender in all quadrants,, no masses or hepatosplenomegaly Positive mild right CVA tenderness next Extremities- no pretibial edema, no calf tenderness; peripheral pulses intact Neuro- alert, oriented x 3; CN 2-12 grossly intact; motor 5/5 bilaterally;sensation 100% on all extremities; no other gross focal neurologic deficits Skin- warm & dry Principal Diagnosis Hypercalcemia, likely secondary to hyperparathyroidism, electrolyte imbalance Discharge Exam Lying in bed comfortably Constitutional well developed, well nourished and + obese; not ill appearing Eyes PERRL, conjunctivae normal, anicteric sclerae ENMT external ear and nose normal, oropharynx normal Neck trachea midline, no thyromegaly Respiratory no respiratory distress Auscultation: lungs clear to auscultation bilaterally Cardiovascular Rate/Rhythm: regular rate, regular rhythm and + bradycardic Heart Sounds: normal S1 and normal S2; no murmur Extremities: no edema Gastrointestinal (Abdomen) Inspection/Auscultation: normal bowel sounds; abdomen not distended Percussion/Palpation: abdomen soft; abdomen nontender Neurologic normal touch/pain/proprioception and moves all extremities; no focal motor deficits Lymphatic no cervical or axillary lymphadenopathy Discharge Data Allergies Allergy/AdvReac Type Severity Reaction Status Date / Time No Known Allergies Allergy Unverified 03/14/23 13:49 Consultations 07/01/23 14:29 ED Decision to Admit Stat 07/02/23 07:52 Consult Nephrology Routine Ordered Studies 07/01/23 11:21 CT Abd and Pelvis [CT abd pelvis IV con only] Stat 07/02/23 11:34 US Head and Neck [US soft tissue head and neck] Urgent Hospital Course (1) Abdominal pain: (2) Nausea & vomiting: (3) Diarrhea: 22-year-old male with no significant past medical history presenting with generalized abdominal pain, nausea and vomiting, with diarrhea x2 days. Hypercalcemia Abdominal pain, nausea vomiting, diarrhea On admission, calcium elevated to 12.3, PTH 190 CT abd/pelvis with no acute GI pathology, did note possible pyelonephritis (see below) Possible primary hyperparathyroidism Admitting provider discussed with school secretary Dr. Andrade Recommended NSS at 100 cc/h, calcitonin every 12 hours, Pamidronate. Calcium level wnl with AM labs, and calcitonin and pamidronate have since been discontinued. Vitamin D level, JOEL level, renal ultrasound all pending 24-hour urine calcium and urine creatinine ordered to start AM 07/02- results pending With Ca level now normal, will start further neck evaluation with US neck, consider CT if nonrevealing Nephrology consult-Calcium level now normal, appreciate recs for discharge Appreciate nephrology input and recommendation Calcium level has been normalized Parathyroid scan is pending and the patient remains free of any symptoms Likely discharge this afternoon UTI/Pyelonephritis Patient with right CVA tenderness CT abdomen pelvis showing possible pyelonephritis UA nonrevealing, Urine culture pending Ceftriaxone IV every 24 hours Urine culture has been negative He remains afebrile without any urinary symptoms and white count has been normal throughout We will discontinue antibiotic on discharge Possible viral gastroenteritis Stool PCR negative Continue supportive care including IV fluids, bowel rest Clinically much better and will advance diet as tolerated Hypomagnesemia, hypophosphatemia Secondary to poor oral intake, diarrhea Replete as needed Continue to monitor Diet: currently NPO, per pt not able to tolerate food yet DVT prophylaxis-SCDs, ambulation as tolerated CODE STATUS: Full code Likely discharge this afternoon Total Time Total Time Spent Total Time Spent (In Minutes): 35 minutes Discharge Plan Discharge Items Patient Disposition: Home - Self-Care Reason For Visit: HYPERCALCEMIA Discharge Diagnosis: Hypercalcemia, likely secondary to hyperparathyroidism, electrolyte imbalance Activity: Resume your previous activity Non-emergency contact: Primary Care Provider Call non-emergency contact if: you have any medication questions and your symptoms worsen Follow-up/Referrals: Meredith Caldwell DO [Physician] - (Dr Meredith Caldwell is accepting new patients at [facility]. The office will call you to set up a new patient/hospital follow up appointment. ) Diet: Regular Fluids: 2000ml (8 cups) Addtl Attending Provider Instructions: Please take your medications as advised Try to drink more fluid around 100 ounces per day Please make an appointment with your PCP and you need to have an endocrine appointment through your PCP. Pending Studies at Discharge: Yes Studies:: Parathyroid scan Stand-Alone Forms: [facility] [employer], Smoking Cessation Medications and DC Order Prescriptions: New Phospha 250 Neutral 250 mg Tablet 1 tab PO BID Qty: 60 0RF Discharge Orders: Discharge Order (Routine); Ordered 07/03/23 Ordered By: Jacob Nguyễn Admission Data Admit Date/Time: 07/01/23 14:30 Attending Provider: Jacob Nguyễn Admit Provider: Trever Marinelli Primary Care Provider: PCP,NO Other Providers: Trever Marinelli ; Farzaneh Andrade Other Interventions: Discharge Summary Assessment (RN) Last Done: 07/03/23 18:01
[2023-07-06 00:07] LABS: Calcium 24 hr Urine 261 mg/24 h (55-300)
[2023-07-06 14:57] LABS: Angiotensin Converting Enzyme 27 U/L (9-67); Vitamin D 1,25 55 pg/mL (18-72); Vitamin D3,1,25 55 pg/mL
== END 2023-07-03 18:34 | disposition home or self-care (01) | DRG 644 ==
LOC: ED 10:25 → 4W 14:30 → SUATTDRO 14:30 → 4W 16:48